=== PATIENT | male | born 1945 | race Caucasian/White ===

== ENCOUNTER 2016-09-01 17:57 | Inpatient (IN) | payer MEDICARE, BC ==
--- NOTE | ~2016-09-01 | HP ---
History And Physical [facility] [address] [place]. [address] NAME: ADELAIDE WOODRUFF : 43 STATUS : ADM Giovanni PAT#: [id number] AGE: 71 ADM/REG DATE : 09/01/16 MR#: [id number] REPORT SERV DATE: 09/02/16 DICTATED BY: ANN-MARIE WEBSTER DATE: 09/01/16 REPORT STATUS : Draft TRANSCRIBED BY: MODL DATE: 09/01/16 DATE OF ADMISSION: 09/01/2016 CHIEF COMPLAINT: Shortness of breath and dyspnea with exertion. HISTORY OF PRESENT ILLNESS: This is a 71-year-old male with history of COPD and chronic hypoxic respiratory failure with current tobacco use, who presents to the emergency room at [facility], with the above-mentioned complaint. History is obtained from Mr. Woodruff, his who is at bedside, and reviewing data available on the [facility] system. According to the patient and his , this has been going on for about two months now with slowly progressive worsening of his shortness of breath. He has chronic COPD and hypoxic respiratory failure, not on home oxygen, and in the last two months, he had shortness of breath and dyspnea with exertion, which was progressive. He finally went to see his primary care physician, Dr. Flora Friedman about two weeks ago and got outpatient treatment with levofloxacin 750 mg p.o. daily for five days and also steroids orally. However, according to them, this did not help at all. He continued to go down, became more short of breath and his dyspnea with exertion actually became worse. Finally, they decided to bring him to the emergency room today. In the emergency room, he had acute exacerbation of his COPD, acute on chronic hypoxic respiratory failure with PaO2 of 56 on room air. Hospitalist Service is asked to admit him for further evaluation and treatment. At the time of my evaluation, he denied any chest pain, palpitations, or orthopnea. He had no cough, hemoptysis, night sweats, or weight loss. He has not had any recent falls or loss of consciousness. His symptoms were not associated with any recent fevers, chills, nausea, vomiting, or diarrhea. He denied any recent hematemesis, hematochezia, dysuria, or hematuria. No other history of recent travel or exposures other than those mentioned above. He has been very compliant with his home medications according to him. PAST MEDICAL HISTORY: Significant for history of chronic hypoxic respiratory failure, not currently on home oxygen. He has history of pneumonia, which was community-acquired pneumonia; history of stress degenerative joint disease and osteoarthritis as well. He also has COPD. He used to see Dr. Mcmullen, but did not agree with him and has not been back since. SOCIAL HISTORY: He has about 13-[id number]-[id number] history of smoking at least and continues to do so. He denied alcohol use or recreational drug use. 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 FAMILY HISTORY: Noncontributory. MEDICATIONS: His medications at home were reviewed by me in the chart today and reordered by me. REVIEW OF SYSTEMS: As in history of present illness. All other systems were reviewed in detail and are quite History And Physical [address] [place]. [address] NAME: ADELAIDE WOODRUFF : 43 STATUS : ADM Giovanin PAT#: [id number] AGE: 71 ADM/REG DATE : 09/01/16 MR#: [id number] REPORT SERV DATE: 09/02/16 DICTATED BY: ANN-MARIE WEBSTER DATE: 09/01/16 REPORT STATUS : Draft TRANSCRIBED BY: MAXWELL DATE: 09/01/16 unremarkable. PHYSICAL EXAMINATION: GENERAL: This is a pleasant 71-year-old, not in any acute distress. HEENT: His head is atraumatic, normocephalic. He is alert, awake, oriented to time, place, and person. Pupils are equal, reacting to light and accommodating. External ocular muscles are intact. Membranes are moist and pink. Sclerae are nonicteric. NECK: Supple with no jugular venous distention, lymphadenopathy, or thyromegaly. LUNGS: Auscultation of his lungs revealed markedly diminished breath. There were Velcro rales with breath sounds in all lung cruz. There were also bilateral expiratory wheezes as well. Trachea appeared to be in the midline. HEART: Auscultation of his heart revealed normal rate and rhythm with no murmurs, rubs, or gallops appreciated. ABDOMEN: Soft, nontender. Bowel sounds are present. EXTREMITIES: Showed nicotine-stained fingers in his right hand. No cyanosis or clubbing. NEUROLOGIC: Grossly intact. No focal sensory or motor deficits. He was able to move all four extremities. Higher functions appear intact. VITAL SIGNS: His temperature was 98.0, pulse 76, respirations 16 a minute, blood pressure was 122/68, and oxygen saturations were 94% breathing 2 L of oxygen via nasal cannula. LABORATORY DATA: Reviewed on the [facility] system showed a pH of 7.37 on arterial blood gas done on room air, pCO2 was 47, PaO2 was 56, and bicarb was 26.5. CMP showed normal values with blood glucose of 115. His troponin today was 0.02. BNP was not done. CBC showed a normal white blood cell count, hemoglobin, hematocrit, and platelet count. Urinalysis was not performed today. Films of the chest x-ray were reviewed by me on the PACS today and interpreted by me. There is normal bony architecture with no cardiomegaly. There are hyperexpanded lungs with no infiltrates, consolidations, or pleural effusions seen. A 12- lead EKG done in emergency room was reviewed and interpreted by me. There is normal sinus rhythm with a rate of 79 with occasional PVCs. IMPRESSION: 1. Shortness of breath. 2. Acute exacerbation of chronic obstructive pulmonary disease. 3. Acute on chronic hypoxic respiratory failure. 4. Tobacco use. 5. Degenerative joint disease. PLAN: We will admit Mr. Woodruff to the Hospitalist Service for a 24-hour observation period. We will go ahead and maximize the bronchodilator treatments, continue supplemental oxygen therapy to titrate FiO2 and keep saturations about 92%. We will also start him on inhaled corticosteroids and IV steroids. His PaO2 was 56 on room air on his blood gas today. He may need evaluation for home oxygen therapy before his discharge. Meanwhile, we will go ahead and check his chemistry and electrolytes in the morning, and replace as needed. We will also check his BNP now. We will start him on intravenous fluids for volume replacement cautiously, start him on low molecular weight heparin for DVT prophylaxis while he is here. I have discussed the above plans with the patient and his , stressed the need for smoking cessation as quickly as possible. They are in agreement with the above History And Physical [address] [place]. [address] NAME: ADELAIDE WOODRUFF : 43 STATUS : ADM Giovanni PAT#: [id number] AGE: 71 ADM/REG DATE : 09/01/16 MR#: [id number] REPORT SERV DATE: 09/02/16 DICTATED BY: ANN-MARIE WEBSTER DATE: 09/01/16 REPORT STATUS : Draft TRANSCRIBED BY: MAXWELL DATE: 09/01/16 plan. Hospitalist Service will be following him during his stay here. /MAXWELL Ann-Marie Webster M.D. / [id number] CC: Bryce Schmidt M.D.
--- NOTE | ~2016-09-01 | DS ---
Discharge Summary [facility] [address] [place]. [address] NAME: ADELAIDE WOODRUFF : 43 STATUS : DIS IN PAT#: [id number] AGE: 71 ADM/REG DATE : 09/02/16 MR#: [id number] REPORT SERV DATE: 09/07/16 DICTATED BY: LEONEL ECHAVARRIA DATE: 09/06/16 REPORT STATUS : Draft TRANSCRIBED BY: MODL DATE: 09/06/16 ADMISSION DATE: 09/01/2016 DISCHARGE DATE: 09/06/2016 DISCHARGE DIAGNOSES: 1. Acute on chronic hypercapnic hypoxic respiratory failure. 2. Acute exacerbation of chronic obstructive pulmonary disease. 3. Severe protein calorie malnutrition. 4. Osteoarthritis. HISTORY: This gentleman has known COPD. He unfortunately continued to smoke at least a pack of cigarettes per day and has experienced 2 months of gradually worsening dyspnea on exertion, increasing cough. He reports recently seeing his primary care provider, Dr. Friedman and received antibiotic but states he did not feel any better and got a second antibiotic. One of them appears to have been Levaquin. He states he took them faithfully. It is unclear whether he got any steroids. He does not know for sure. He states he had increased sputum production that was white in color. No fever. He had some soreness in his chest with cough. He states he did not get the flu vaccine this season yet, but he is up to date he believes with his pneumonia vaccinations from Dr. Friedman. When he came to the emergency room, he was noted to have diffuse wheezes, tight breath sounds, and his arterial blood gas done on room air pH 7.37, pCO2 of 47, PO2 of 56, bicarbonate 26.5. His chest x- ray imaging revealed hyperinflation consistent with COPD. No infiltrate. He was referred to our team for inpatient care. Procalcitonin was undetectable, less than 0.05. White count on admission was 5.5. After steroids, it went up to a peak of 17 and then by the 04 of September, it was down to 11. His hemoglobin on admission was elevated at 17.4, subsequently it was around 14.4. The patient had two blood cultures drawn on admission, no growth. Sputum for Gram stain and culture collected twice unfortunately were poor specimens and rejected each time. The patient was treated with oxygen and initially started on intravenous Solu-Medrol, and he was converted over to oral prednisone. He was given doxycycline as part of the GOLD recommendations for COPD exacerbations. His urine strep and Legionella antigens were negative. He did not have fever through his time here in the hospital. He was given his flu vaccine during his time here in the hospital. B-natriuretic peptide was 20.5, cardiac troponin is normal. His TSH is normal at 1.46. His creatinine and glucose normal. The patient has very distant breath sounds, very hyperexpanded lung cruz, and significant COPD. His oxygen saturations have shown that he still is going to need home and portable oxygen after discharge. On 09/05/2016 just after bathing himself and walking out of the bathroom, his O2 saturation was 85% on room air and later in the day, after resting for a while when he got up and walked a short distance, his sat still dropped to 88%. He is being set up for home and portable oxygen 2 L nasal cannula. I have talked to him several times about the importance of being off all tobacco. He is quite motivated to do this and so for the nicotine patch is helping him considerably. The patient does have what appears to be severe protein calorie malnutrition. He has very Discharge Summary [address] [place]. [address] NAME: ADELAIDE WOODRUFF : 43 STATUS : DIS IN [facility]#: [id number] AGE: 71 ADM/REG DATE : 09/02/16 MR#: [id number] REPORT SERV DATE: 09/07/16 DICTATED BY: LEONEL ECHAVARRIA DATE: 09/06/16 REPORT STATUS : Draft TRANSCRIBED BY: MAXWELL DATE: 09/06/16 little subcutaneous fat. He has a lot of muscle mass loss, and his body mass index is only 15.8. Dietitian met with him and recommended he take supplements of Ensure Complete t.i.d., and we have reinforced that to the patient and his as well. He is to follow up with his primary provider, Dr. Flora Friedman, within the next week. We are setting him up with a home nebulizer as well. DISCHARGE MEDICATIONS: Nicotine patch 21 mg size [id number] with instructions how to taper this gradually over time, prednisone 40 mg daily for four more days then stop, DuoNeb q.i.d. p.r.n. shortness of breath with nebulizer, Tylenol 650 q.6 hours p.r.n. pain, albuterol HFA two puffs q.i.d. p.r.n. shortness of breath when he is away from his nebulizer, and Anoro Ellipta 62.5/25 one puff daily. We are asking Case Management to get him set up for outpatient pulmonary rehab. I spent 34 minutes today with the patient with discharge plans. POPEYE/MAXWELL Leonel Echavarria M.D. / [id number] CC: Bryce Umana M.D. Pamela Sud, M.D.
[2016-09-01 14:11] LABS: BASOPHILS 0.5 %; BASOPHILS ABSOLUTE 0.03 10/3/uL (0.0-0.16); EOSINOPHILS 1.4 %; EOSINOPHILS ABSOLUTE 0.08 10/3/uL (0.0-0.53); IMMATURE GRANULOCYTES 0.2 %; IMMATURE GRANULOCYTES ABSOLUTE 0.01 10/3/uL (0.0-0.11); LYMPHOCYTES 26.3 %; LYMPHOCYTES ABSOLUTE 1.45 10/3/uL (0.67-4.30); MEAN CORPUS HGB CONC 35.2 g/dL (32.0-36.0); MEAN CORPUSCULAR HEMOGLOB 32.6 pg (26.0-34.0); MEAN CORPUSCULAR VOLUME 92.9 fL (80-100); MEAN PLATELET VOLUME 9.7 fL (9.2-13.0); MONOCYTES 8.3 %; MONOCYTES ABSOLUTE 0.46 10/3/uL (0.21-1.20); NEUTROPHILS 63.3 %; NEUTROPHILS ABSOLUTE 3.49 10/3/uL (2.02-8.40); PLATELET COUNT 195 10/3/uL (150-400); RBC DISTRIBUTION WIDTH 14.2 % (12.0-16.0)
[2016-09-01 14:13] LABS: ER CBC TAT 0 Hrs 07 MinsNP; HEMATOCRIT 49.5 % (40.0-51.0); HEMOGLOBIN 17.4 g/dL (13.6-17.8); MANUAL DIFF NO %; RED CELL COUNT 5.33 10/6/uL (4.7-6.1); WHITE BLOOD CELLS 5.5 10/3/uL (4.5-10.5)
[2016-09-01 14:19] LABS: INTERNATIONAL NORMAL RATI 1.1 UNITS (-); PARTIAL THROMBO TIME 35.7 SEC (22.5-37.2); PROTIME (NOT ORD) 14.1 SEC (12.0-14.5)
[2016-09-01 14:29] LABS: CALCIUM, SERUM 9.4 MG/DL (8.5-10.4); CHEST PAIN PROFILE TAT 0 Hrs 23 Mins; CHLORIDE, SERUM 105 MMOL/L (96-112); CREATININE 0.88 MG/DL (0.70-1.30); GFR AFRICAN AMERICAN 99 ML/MIN (>=60); GFR NON AFRICAN AMERICAN 86 ML/MIN (>=60); GLUCOSE, SERUM 115 MG/DL (60-99); POTASSIUM, SERUM 4.7 MMOL/L (3.5-5.3); SODIUM, SERUM 144 MMOL/L (135-148); TROPONIN I <0.02 NG/ML (<0.05)
[2016-09-01 14:30] LABS: BUN (BLOOD UREA NITROGEN) 13 MG/DL (6-23); CO2 (CARBON DIOXIDE) 32 MMOL/L (24-34)
[~2016-09-01 17:57] MED LIST: ALEVE220 MG PO; ANOROELLIPTA INH; ASPIRIN; ASPIRIN OTC PO; FLONASE NAS; HABIT14 TOP; HABIT21 TOP; HUMI PO; LEVAQUIN750 MG PO; MULTIPLE VIT PO; P20 PO; PROAIR HFA INH; SPIRIVA INH; VOLTAREN1 % TOP
[2016-09-01 19:17] LABS: ALLENS TEST Pos; BE (BASE EXCESS) 0.5 MEQ/L (0 +/- 2.5); CARBOXYHEMOGLOBIN 3.4 % (0-3); HCO3 (ACTUAL BICARBONATE) 26.5 MEQ/L (23-27); HEMOBLOGIN CONTENT 16.6 G/DL (14-18); INSTRUMENT SERIAL # 8087; METHEMOGLOBIN 0.3 % (0-3); OPERATOR ID 17589; PCO2 (CO2 TENSION) 47 MMHG (35-45); PO2 (O2 TENSION) 56 MMHG (79-93); SAMPLE Arterial; pH 7.37 (7.37-7.43)
[2016-09-02 04:20] LABS: BASOPHILS 0 %; EOSINOPHILS 0 %; HEMATOCRIT 41.9 % (40.0-51.0); HEMOGLOBIN 14.6 g/dL (13.6-17.8); IMMATURE GRANULOCYTES 0.2 %; IMMATURE GRANULOCYTES ABSOLUTE 0.01 10/3/uL (0.0-0.11); LYMPHOCYTES 7.2 %; LYMPHOCYTES ABSOLUTE 0.37 10/3/uL (0.67-4.30); MANUAL DIFF NO %; MEAN CORPUS HGB CONC 34.8 g/dL (32.0-36.0); MEAN CORPUSCULAR HEMOGLOB 32.8 pg (26.0-34.0); MEAN CORPUSCULAR VOLUME 94.2 fL (80-100); MEAN PLATELET VOLUME 9.7 fL (9.2-13.0); MONOCYTES 0.2 %; MONOCYTES ABSOLUTE 0.01 10/3/uL (0.21-1.20); NEUTROPHILS 92.4 %; NEUTROPHILS ABSOLUTE 4.72 10/3/uL (2.02-8.40); PLATELET COUNT 158 10/3/uL (150-400); RBC DISTRIBUTION WIDTH 13.8 % (12.0-16.0); RED CELL COUNT 4.45 10/6/uL (4.7-6.1); WHITE BLOOD CELLS 5.1 10/3/uL (4.5-10.5)
[2016-09-02 04:31] LABS: BUN (BLOOD UREA NITROGEN) 15 MG/DL (6-23); CHLORIDE, SERUM 106 MMOL/L (96-112); CREATININE 0.92 MG/DL (0.70-1.30); GFR AFRICAN AMERICAN 96 ML/MIN (>=60); GFR NON AFRICAN AMERICAN 83 ML/MIN (>=60); PHOSPHORUS, SERUM 2.2 MG/DL (2.5-4.5); POTASSIUM, SERUM 4.2 MMOL/L (3.5-5.3); SODIUM, SERUM 142 MMOL/L (135-148)
[2016-09-02 04:33] LABS: CALCIUM, SERUM 8.3 MG/DL (8.5-10.4); CO2 (CARBON DIOXIDE) 25 MMOL/L (24-34); GLUCOSE, SERUM 197 MG/DL (60-99)
[2016-09-02 15:18] LABS: PROCALCITONIN <0.05 ng/mL (<0.5)
[2016-09-03 07:05] LABS: BASOPHILS 0.1 %; BASOPHILS ABSOLUTE 0.01 10/3/uL (0.0-0.16); EOSINOPHILS 0 %; HEMATOCRIT 41.4 % (40.0-51.0); HEMOGLOBIN 14.7 g/dL (13.6-17.8); IMMATURE GRANULOCYTES 0.2 %; IMMATURE GRANULOCYTES ABSOLUTE 0.04 10/3/uL (0.0-0.11); LYMPHOCYTES 5.6 %; LYMPHOCYTES ABSOLUTE 0.95 10/3/uL (0.67-4.30); MEAN CORPUS HGB CONC 35.5 g/dL (32.0-36.0); MEAN CORPUSCULAR HEMOGLOB 33.6 pg (26.0-34.0); MEAN CORPUSCULAR VOLUME 94.5 fL (80-100); MEAN PLATELET VOLUME 9.9 fL (9.2-13.0); MONOCYTES 4.8 %; MONOCYTES ABSOLUTE 0.81 10/3/uL (0.21-1.20); NEUTROPHILS 89.3 %; NEUTROPHILS ABSOLUTE 15.17 10/3/uL (2.02-8.40); PLATELET COUNT 178 10/3/uL (150-400); RBC DISTRIBUTION WIDTH 13.9 % (12.0-16.0); RED CELL COUNT 4.38 10/6/uL (4.7-6.1)
[2016-09-03 07:06] LABS: MANUAL DIFF NO %
[2016-09-04 06:00] LABS: BASOPHILS 0 %; EOSINOPHILS 0.2 %; EOSINOPHILS ABSOLUTE 0.02 10/3/uL (0.0-0.53); HEMATOCRIT 41.5 % (40.0-51.0); HEMOGLOBIN 14.4 g/dL (13.6-17.8); IMMATURE GRANULOCYTES 0.3 %; IMMATURE GRANULOCYTES ABSOLUTE 0.03 10/3/uL (0.0-0.11); LYMPHOCYTES 13.4 %; LYMPHOCYTES ABSOLUTE 1.48 10/3/uL (0.67-4.30); MEAN CORPUS HGB CONC 34.7 g/dL (32.0-36.0); MEAN CORPUSCULAR HEMOGLOB 32.7 pg (26.0-34.0); MEAN CORPUSCULAR VOLUME 94.3 fL (80-100); MEAN PLATELET VOLUME 9.8 fL (9.2-13.0); MONOCYTES 5.8 %; MONOCYTES ABSOLUTE 0.64 10/3/uL (0.21-1.20); NEUTROPHILS 80.3 %; NEUTROPHILS ABSOLUTE 8.86 10/3/uL (2.02-8.40); PLATELET COUNT 182 10/3/uL (150-400); RBC DISTRIBUTION WIDTH 13.9 % (12.0-16.0)
[2016-09-04 06:03] LABS: MANUAL DIFF NO %
[2016-09-04 06:27] LABS: CALCIUM, SERUM 8.8 MG/DL (8.5-10.4); CHLORIDE, SERUM 102 MMOL/L (96-112); CREATININE 0.86 MG/DL (0.70-1.30); GFR AFRICAN AMERICAN 100 ML/MIN (>=60); GFR NON AFRICAN AMERICAN 87 ML/MIN (>=60); POTASSIUM, SERUM 4.1 MMOL/L (3.5-5.3); SODIUM, SERUM 141 MMOL/L (135-148)
[2016-09-04 06:31] LABS: BUN (BLOOD UREA NITROGEN) 22 MG/DL (6-23); CO2 (CARBON DIOXIDE) 30 MMOL/L (24-34); GLUCOSE, SERUM 98 MG/DL (60-99)
[2016-09-06] MEDS ORDERED: P20 PO (09:42)
[2016-09-06] MEDS ORDERED: DUONEB INH (09:42)
== END 2016-09-06 15:12 | disposition home or self-care (01) | DRG 189 ==
LOC: ER 17:57 → ER/OF 19:45 → 5NO 21:04
PROVIDERS: Emergency Medicine; Hospitalist; Internal Medicine Pulmonary Disease
DX: J96.21 Acute and chronic respiratory failure with hypoxia (principal); E43 Unspecified severe protein-calorie malnutrition; J44.1 Chronic obstructive pulmonary disease with (acute) exacerbation; Z68.1 Body mass index [BMI] 19.9 or less, adult; F17.210 Nicotine dependence, cigarettes, uncomplicated; M19.90 Unspecified osteoarthritis, unspecified site; J96.22 Acute and chronic respiratory failure with hypercapnia
CPT/HCPCS: 36600; 71020; 80048; 82805; 83735; 83880; 84100; 84145; 84443; 84484; 85025; 85610; 85730; 87040; 87205; 87449; 93005; 94640; 94644; 96374; 99285; A9270-GY; J2920; J2930